=== PATIENT | male | born 1965 | race Caucasian/White ===

== ENCOUNTER 2021-01-04 12:51 | Emergency (ER) | payer OTHER, MEDICAID ==
[~2021-01-04] VITALS: Ht 147.3 cm; Wt 49.9 kg
[~2021-01-04 12:51] MED LIST: GEMF600T89 PO; LEVO100T9 PO; LORA10TA68 PO
[2021-01-04 12:58] VITALS: BP_SYST 134
[2021-01-04 13:16] LABS: HEMOGLOBIN 13.3 g/dL (14.0-18.0); WHITE BLOOD COUNT (AUTO) 10.2 K/uL (4.8-10.8)
[2021-01-04 13:20] LABS: BASOPHILS # (AUTO) 0.1 K/uL (0.0-0.2); BASOPHILS % (AUTO) 1.1 % (0.0-2.0); EOSINOPHILS % (AUTO) 0.1 % (0.0-4.0); HEMATOCRIT 39.7 % (36-54); LYMPHOCYTES # (AUTO) 1.7 K/uL (1.0-5.5); LYMPHOCYTES % (AUTO) 16.9 % (20.5-51.5); MEAN CORPUSCULAR HEMOGLOBIN 30 pg (27-31); MEAN CORPUSCULAR HGB CONC 34 % (32-36); MEAN CORPUSCULAR VOLUME 90 fL (79.0-98.0); MONOCYTES # (AUTO) 1.2 K/uL (0.0-1.0); MONOCYTES % (AUTO) 11.4 % (1.7-9.3); NEUTROPHILS # (AUTO) 7.2 K/uL (1.8-7.7); NEUTROPHILS % (AUTO) 70.5 % (40.0-70.0); PLATELET COUNT (AUTO) 346 K/uL (130-430); RED BLOOD CELL COUNT(AUTO) 4.44 MIL/uL (4.2-6.2); RED CELL DISTRIBUTION WIDTH 14.9 % (9.0-15.0)
[2021-01-04 13:24] LABS: CALCIUM 8.6 mg/dL (8.4-11.0); CREATININE 1.32 mg/dL (0.55-1.30); POTASSIUM 3.7 mmol/L (3.5-5.1)
[2021-01-04 13:30] LABS: ALBUMIN 3.4 g/dL (3.4-4.8); TOTAL BILIRUBIN 0.4 mg/dL (0.0-1.0)
[2021-01-04] MEDS ORDERED: IBUPROFEN 600 MG TABLET PO ONE (14:00)
[2021-01-04] MEDS ORDERED: LIDOCAINE/EPI 1% 1:100000 20 ML VIAL INJ ONE (15:11)
[2021-01-04 16:00] VITALS: BP_SYST 115
== END 2021-01-04 16:00 | disposition home or self-care (01) ==
LOC: SED 12:51
DX: M25.571 Pain in right ankle and joints of right foot (principal); Q90.9 Down syndrome, unspecified
CPT/HCPCS: 36415; 70450-TC; 72110; 72170-TC; 73552; 73590-TC; 76376; 80053; 84550-TC; 85025; 99285

== ENCOUNTER 2021-04-06 13:56 | Emergency (ER) | payer OTHER, MEDICAID ==
[~2021-04-06] VITALS: Ht 147.3 cm; Wt 68.9 kg
[2021-04-06 14:06] VITALS: BP_SYST 120
[2021-04-06] MEDS ORDERED: OLOP5DRO20 OP (14:42)
[2021-04-06] MEDS ORDERED: OFLO5DRO6 EACH EYE (14:42)
[2021-04-06] MEDS ORDERED: SULF5DRO EACH EYE (15:07)
[2021-04-06 15:17] VITALS: BP_SYST 120
== END 2021-04-06 15:17 | disposition home or self-care (01) ==
LOC: SED 13:56
DX: H10.9 Unspecified conjunctivitis (principal); Z79.899 Other long term (current) drug therapy
CPT/HCPCS: 99283